=== PATIENT | male | born 1970 | race Caucasian/White ===

== ENCOUNTER → 2020-10-19 | Outpatient (CLI) | payer BC ==
--- NOTE | 2020-10-20 04:04 | REP ---
INDICATION: POST OP IMAGING. COMPARISON: 11/27/2012 TECHNIQUE: AP, lateral, open mouth views of the cervical spine. FINDINGS: Anterior fixation at C5-C7. Alignment is maintained. Remainder of the examination appears essentially age-appropriate. No acute fracture/compression injury or subluxation. IMPRESSION: Anterior fixation. Otherwise age-appropriate examination. <Electronically signed by Carlos Manuel Thomas > 10/20/20 [id number]
== END ==
LOC: M WUC 12:15
PROVIDERS: ATTEND Neurological Surgery
DX: Z48.89 Encounter for other specified surgical aftercare (principal); M43.22 Fusion of spine, cervical region

== ENCOUNTER → 2022-04-23 | Outpatient (CLI) | payer OTHER, BC | LOC: M SOG 13:15 | PROVIDERS: ATTEND Physician Assistant | DX: S61.402D Unspecified open wound of left hand, subsequent encounter (principal) ==

== ENCOUNTER → 2022-05-15 | Outpatient (CLI) | payer OTHER, BC | LOC: M SOG 08:04 | PROVIDERS: ATTEND Orthopaedic Surgery Hand Surgery | DX: S61.402A Unspecified open wound of left hand, initial encounter (principal); X58.XXXA Exposure to other specified factors, initial encounter; Y92.9 Unspecified place or not applicable ==

== ENCOUNTER 2022-06-16 17:13 | Emergency (ER) | payer OTHER ==
[~2022-06-16] VITALS: Ht 182.9 cm; Wt 84.1 kg
[2022-06-16 19:10] VITALS: BP 110/62
== END 2022-06-16 19:18 | disposition home or self-care (01) ==
LOC: M ED 17:45
DX: S43.121A Dislocation of right acromioclavicular joint, 100%-200% displacement, initial encounter (principal); S60.022A Contusion of left index finger without damage to nail, initial encounter; W01.0XXA Fall on same level from slipping, tripping and stumbling without subsequent striking against object, initial encounter; Z88.6 Allergy status to analgesic agent; Y92.410 Unspecified street and highway as the place of occurrence of the external cause

== ENCOUNTER → 2022-06-20 | Outpatient (CLI) | payer OTHER ==
[~2022-06-20] MED LIST: BACL1TAB9 PO; D3 H10002 PO; GABA600T4 PO; HYDR-3713 PO; IBUP-1114 PO; LIPI20TA PO; OMEG10002 PO; VITMTA PO; WELLTAB38 PO; ZOLO100T PO
== END ==
LOC: M LABSMTC 11:31
PROVIDERS: ATTEND Anesthesiology
DX: Z01.812 Encounter for preprocedural laboratory examination (principal); Z11.52 Encounter for screening for COVID-19

== ENCOUNTER → 2022-06-21 | Outpatient (CLI) | payer OTHER | LOC: M SOG 13:06 | PROVIDERS: ATTEND Student in an Organized Health Care Education/Training Program | DX: S43.101A Unspecified dislocation of right acromioclavicular joint, initial encounter (principal) ==

== ENCOUNTER 2022-06-22 15:04 | Day surgery (SDC) | payer OTHER ==
[~2022-06-22] VITALS: Ht 182.9 cm; Wt 83.9 kg
[2022-06-22] MEDS ORDERED: LR 1,000 ML IV SCH ×2 (15:45→20:10)
[2022-06-22] MEDS ORDERED: fentaNYL 100 MCG/2 ML INJECTION IV PRN ×2 (16:40→20:10)
[2022-06-22] MEDS ORDERED: EPINEPHrine INJ 1 MG/ML 1ML AMP PN ONE (16:40)
[2022-06-22] MEDS ORDERED: ROPIvacaine 0.5% 30ML VIAL PN ONE (16:40)
[2022-06-22] MEDS ORDERED: LIDOCAINE 1% SDV 5ML VIAL PN ONE (16:40)
[2022-06-22] MEDS ORDERED: LIDOCAINE 2% 100MG/5ML SDV (FOR ANES.) As Ordered ONE (16:51)
[2022-06-22] MEDS ORDERED: ROCURONIUM BROMIDE 50MG/5ML VIAL As Ordered ONE (16:51)
[2022-06-22] MEDS ORDERED: fentaNYL 100 MCG/2 ML INJECTION As Ordered ONE (16:51)
[2022-06-22] MEDS ORDERED: propofoL 200 MG/20 ML VIAL As Ordered ONE (16:51)
[2022-06-22] MEDS: MIDAZOLAM INJ 2MG/2ML VIAL IV PRN ×2 (17:04→17:11)
[2022-06-22] MEDS ORDERED: TRANEXAMIC ACID 100 MG/ML 10ML VIAL As Ordered ONE ×2 (17:14→18:40)
[2022-06-22] MEDS ORDERED: ceFAZolin 2 GM/D5W 50 ML IV BAG As Ordered ONE (17:14)
[2022-06-22] MEDS ORDERED: LIDOCAINE 1% SDV 30ML VIAL As Ordered ONE (17:16)
[2022-06-22] MEDS ORDERED: BUPIVACAINE HCL 0.5% 30ML VIAL As Ordered ONE (17:16)
[2022-06-22] MEDS ORDERED: ACETAMINOPHEN 1000MG 100ML IV BAG As Ordered ONE (18:27)
[2022-06-22] MEDS ORDERED: SUGAMMADEX SODIUM 500 MG/5 ML VIAL (BRIDION) As Ordered ONE (18:28)
[2022-06-22] MEDS ORDERED: ONDANSETRON 4MG 2ML VIAL As Ordered ONE (18:28)
[2022-06-22] MEDS ORDERED: VANCOMYCIN 1000MG/20ML VIAL As Ordered ONE (18:59)
[2022-06-22] MEDS ORDERED: oxyCODONE 5MG TAB PO PRN (20:10)
[2022-06-22] MEDS ORDERED: HYDROMORPHONE HCL 0.5 MG/ 0.5 ML SYRINGE IV PRN (20:10)
[2022-06-22] MEDS ORDERED: ONDANSETRON 4MG 2ML VIAL IV PRN (20:10)
[2022-06-22 21:40] VITALS: BP 132/77
== END 2022-06-22 21:55 | disposition home or self-care (01) ==
LOC: M SDC 15:04
PROVIDERS: ATTEND Student in an Organized Health Care Education/Training Program
DX: S43.101A Unspecified dislocation of right acromioclavicular joint, initial encounter (principal); W19.XXXA Unspecified fall, initial encounter; Y92.89 Other specified places as the place of occurrence of the external cause; Y93.9 Activity, unspecified; Y99.9 Unspecified external cause status; Z88.5 Allergy status to narcotic agent; Z79.899 Other long term (current) drug therapy; E78.5 Hyperlipidemia, unspecified
CPT/HCPCS: 23550; 71045; 73020; 76000; 93005; C1713; J1100; J2405

== ENCOUNTER → 2022-07-06 | Outpatient (CLI) | payer OTHER | LOC: M SOG 08:53 | PROVIDERS: ATTEND Orthopaedic Surgery Hand Surgery | DX: M25.511 Pain in right shoulder (principal) ==

== ENCOUNTER → 2022-07-19 | Outpatient (CLI) | payer OTHER | LOC: M SOG 08:20 | PROVIDERS: ATTEND Student in an Organized Health Care Education/Training Program | DX: S43.101D Unspecified dislocation of right acromioclavicular joint, subsequent encounter (principal) ==

== ENCOUNTER 2022-07-31 14:30 | Outpatient (RCR) | payer OTHER | END 2022-08-07 | LOC: M PT 14:30 | PROVIDERS: ATTEND Student in an Organized Health Care Education/Training Program | DX: S43.101D Unspecified dislocation of right acromioclavicular joint, subsequent encounter (principal) ==

== ENCOUNTER → 2022-08-03 | Outpatient (CLI) | payer OTHER | LOC: M RAD 13:29 | PROVIDERS: ATTEND Nurse Practitioner Family | DX: R94.6 Abnormal results of thyroid function studies (principal); E04.1 Nontoxic single thyroid nodule ==

== ENCOUNTER → 2022-08-23 | Outpatient (CLI) | payer OTHER | LOC: M SOG 07:51 | PROVIDERS: ATTEND Student in an Organized Health Care Education/Training Program | DX: S43.101D Unspecified dislocation of right acromioclavicular joint, subsequent encounter (principal); Z47.89 Encounter for other orthopedic aftercare; W18.30XD Fall on same level, unspecified, subsequent encounter; Y92.009 Unspecified place in unspecified non-institutional (private) residence as the place of occurrence of the external cause ==

== ENCOUNTER 2022-08-29 08:44 | Outpatient (RCR) | payer OTHER | END 2022-09-07 | LOC: M PT 08:44 | PROVIDERS: ATTEND Student in an Organized Health Care Education/Training Program | DX: S43.101A Unspecified dislocation of right acromioclavicular joint, initial encounter (principal) ==

== ENCOUNTER 2022-09-20 08:45 | Outpatient (RCR) | payer OTHER | END 2022-10-07 | LOC: M PT 08:45 | PROVIDERS: ATTEND Student in an Organized Health Care Education/Training Program | DX: S43.101A Unspecified dislocation of right acromioclavicular joint, initial encounter (principal); Z98.890 Other specified postprocedural states ==

== ENCOUNTER → 2022-09-20 | Outpatient (CLI) | payer OTHER | LOC: M SOG 07:53 | PROVIDERS: ATTEND Student in an Organized Health Care Education/Training Program | DX: S43.101D Unspecified dislocation of right acromioclavicular joint, subsequent encounter (principal); Z47.89 Encounter for other orthopedic aftercare; Y93.9 Activity, unspecified; Y92.9 Unspecified place or not applicable ==

== ENCOUNTER → 2022-11-07 | Outpatient (CLI) | payer OTHER | LOC: M PLAIMG 08:06 | PROVIDERS: ATTEND Physician Assistant | DX: S43.101D Unspecified dislocation of right acromioclavicular joint, subsequent encounter (principal) ==

== ENCOUNTER 2022-11-21 14:00 | Day surgery (SDC) | payer OTHER ==
[~2022-11-21] VITALS: Ht 182.9 cm; Wt 83.6 kg
[~2022-11-21 14:00] MED LIST changes: +LIDOCAINE 2% 100MG/5ML SDV (FOR ANES.) As Ordered ONE; +ONDANSETRON 4MG 2ML VIAL As Ordered ONE; +ROCURONIUM BROMIDE 50MG/5ML VIAL As Ordered ONE; +SUGAMMADEX SODIUM 500 MG/5 ML VIAL (BRIDION) As Ordered ONE; +ceFAZolin 1GM VIAL As Ordered ONE; +propofoL 200 MG/20 ML VIAL As Ordered ONE
[2022-11-21] MEDS ORDERED: LR 1,000 ML IV SCH (14:30)
[2022-11-21] MEDS ORDERED: ceFAZolin SOD 2 GM in IV 1 EA IV STA (17:04)
[2022-11-21] MEDS ORDERED: KETOROLAC 60MG 2ML VIAL As Ordered ONE (17:04)
[2022-11-21] MEDS ORDERED: MIDAZOLAM INJ 2MG/2ML VIAL As Ordered ONE (17:05)
[2022-11-21] MEDS ORDERED: fentaNYL 100 MCG/2 ML INJECTION As Ordered ONE (17:05)
[2022-11-21] MEDS ORDERED: ceFAZolin 2 GM/D5W 50 ML IV BAG As Ordered ONE (17:07)
[2022-11-21] MEDS ORDERED: ePHEDrine SULFATE 25 MG/5 ML(5MG/ML) SYRINGE As Ordered ONE (18:01)
[2022-11-21] MEDS ORDERED: VANCOMYCIN 1000MG/20ML VIAL As Ordered ONE (18:36)
[2022-11-21] MEDS ORDERED: fentaNYL 100 MCG/2 ML INJECTION IV PRN (19:35)
[2022-11-21] MEDS ORDERED: ONDANSETRON 4MG 2ML VIAL IV PRN (19:35)
[2022-11-21] MEDS ORDERED: oxyCODONE 5MG TAB PO PRN (19:35)
[2022-11-21 20:35] VITALS: BP 130/72; TEMP 98; O2SAT 98
== END 2022-11-21 21:00 | disposition home or self-care (01) ==
LOC: M SDC 14:00
PROVIDERS: ATTEND Student in an Organized Health Care Education/Training Program
DX: Z47.2 Encounter for removal of internal fixation device (principal); S43.101D Unspecified dislocation of right acromioclavicular joint, subsequent encounter; E78.5 Hyperlipidemia, unspecified; M54.50 Low back pain, unspecified; F41.9 Anxiety disorder, unspecified; F32.A Depression, unspecified; Z79.899 Other long term (current) drug therapy; Z88.5 Allergy status to narcotic agent
CPT/HCPCS: 20680; 76000; C9290; J0690; J1100; J1885; J2250; J2405; J3010

== ENCOUNTER → 2022-12-04 | Outpatient (CLI) | payer OTHER ==
[~2022-12-04] MED LIST changes: -LIDOCAINE 2% 100MG/5ML SDV (FOR ANES.) As Ordered ONE; -ONDANSETRON 4MG 2ML VIAL As Ordered ONE; -ROCURONIUM BROMIDE 50MG/5ML VIAL As Ordered ONE; -SUGAMMADEX SODIUM 500 MG/5 ML VIAL (BRIDION) As Ordered ONE; -ceFAZolin 1GM VIAL As Ordered ONE; -propofoL 200 MG/20 ML VIAL As Ordered ONE
== END ==
LOC: M SOG 08:45
PROVIDERS: ATTEND Orthopaedic Surgery Hand Surgery
DX: M25.511 Pain in right shoulder (principal)

== ENCOUNTER 2022-12-06 09:15 | Outpatient (RCR) | payer OTHER | END 2022-12-07 | LOC: M PT 09:15 | PROVIDERS: ATTEND Student in an Organized Health Care Education/Training Program | DX: Z47.89 Encounter for other orthopedic aftercare (principal); Z98.890 Other specified postprocedural states ==

== ENCOUNTER 2022-12-19 08:30 | Outpatient (RCR) | payer OTHER | END 2023-01-07 | LOC: M PT 08:30 | PROVIDERS: ATTEND Internal Medicine | DX: Z47.89 Encounter for other orthopedic aftercare (principal); Z98.890 Other specified postprocedural states ==

== ENCOUNTER 2023-01-02 07:35 | Day surgery (SDC) | payer OTHER ==
[~2023-01-02] VITALS: Ht 182.9 cm; Wt 82.6 kg
[~2023-01-02 07:35] MED LIST changes: +NS 1,000 ML IV ONE
[2023-01-02] MEDS ORDERED: propofoL 200 MG/20 ML VIAL As Ordered ONE ×2 (09:09→09:11)
[2023-01-02] MEDS ORDERED: LIDOCAINE 2% 100MG/5ML SDV (FOR ANES.) As Ordered ONE (09:11)
[2023-01-02 09:20] VITALS: TEMP 98
[2023-01-02 09:50] VITALS: BP 119/59; O2SAT 100
== END 2023-01-02 09:52 | disposition home or self-care (01) ==
LOC: M OPP 07:35
PROVIDERS: ATTEND Internal Medicine Gastroenterology
DX: Z12.11 Encounter for screening for malignant neoplasm of colon (principal); K64.0 First degree hemorrhoids; Z79.02 Long term (current) use of antithrombotics/antiplatelets; Z79.891 Long term (current) use of opiate analgesic; Z79.899 Other long term (current) drug therapy; Z88.8 Allergy status to other drugs, medicaments and biological substances

== ENCOUNTER → 2023-01-10 | Outpatient (CLI) | payer OTHER ==
[~2023-01-10] MED LIST changes: -NS 1,000 ML IV ONE
== END ==
LOC: M SOG 07:50
PROVIDERS: ATTEND Student in an Organized Health Care Education/Training Program
DX: M25.511 Pain in right shoulder (principal); S43.201A Unspecified subluxation of right sternoclavicular joint, initial encounter; X58.XXXA Exposure to other specified factors, initial encounter; Y92.9 Unspecified place or not applicable

== ENCOUNTER → 2023-10-03 | Outpatient (CLI) | payer OTHER | LOC: M SOG 08:55 | PROVIDERS: ATTEND Physician Assistant | DX: M25.642 Stiffness of left hand, not elsewhere classified (principal) ==

== ENCOUNTER → 2023-11-19 | Outpatient (CLI) | payer OTHER ==
[~2023-11-19] MED LIST changes: +PROHANCE 279.3MG/ML 15ML VIAL As Ordered ONE; +PROHANCE 279.3MG/ML 5ML VIAL As Ordered ONE
== END ==
LOC: M RAD 15:14
PROVIDERS: ATTEND Pain Medicine Interventional Pain Medicine
DX: M96.1 Postlaminectomy syndrome, not elsewhere classified (principal)
CPT/HCPCS: 72156; 72158; A9576